=== PATIENT | male | born 1985 | race African-American/Black ===

== ENCOUNTER 2016-04-25 17:39 | Emergency (ER) | payer MEDICAID ==
[2016-04-25] MEDS ORDERED: IBUPROFEN 400 MG TABLET PO ONE (18:49)
[2016-04-25] MEDS ORDERED: oxyCOD/ACETAMIN 5 MG/325 MG TABLET PO ONE (18:49)
[2016-04-25] MEDS ORDERED: AMOXICILLIN 250 MG CAPSULE PO ONE (18:49)
== END 2016-04-25 19:12 | disposition home or self-care (01) ==
DX: K08.89 Other specified disorders of teeth and supporting structures (principal)
CPT/HCPCS: 99281; 99283; A9270

== ENCOUNTER 2016-05-04 10:31 | Outpatient (CLI) | payer MEDICAID | END 2016-05-04 10:32 | disposition home or self-care (01) | DX: M25.462 Effusion, left knee (principal); M25.562 Pain in left knee ==

== ENCOUNTER 2016-11-08 19:29 | Emergency (ER) | payer MEDICAID ==
[2016-11-08 19:41] VITALS: BP 140/87
[2016-11-08] MEDS ORDERED: KETOROLAC 60 MG/2 ML VIAL IM STA (20:26)
[2016-11-08] MEDS ORDERED: KETOROLAC 60 MG/2 ML VIAL ONE (20:37)
--- NOTE | 2016-11-08 20:57 | XRAY Preliminary Report ---
Exam: XR Elbow 3 View LT IMPRESSION: Normal elbow radiography. [facility] SITE ID: [id number]
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
--- NOTE | 2016-11-08 20:59 | XRAY Report ---
EXAM: LEFT ELBOW RADIOGRAPHY EXAM DATE: 11/08/2016 08:39 PM. CLINICAL HISTORY: Elbow pain. COMPARISON: None. TECHNIQUE: 3 views. FINDINGS: Bones: Normal. No fractures or bone lesions. Joints: Normal. No effusion. No subluxation. Soft Tissues: Normal. No soft tissue swelling. IMPRESSION: Normal elbow radiography. [facility] Referring Provider Line: [phone] SITE ID: [id number]
== END 2016-11-08 21:09 | disposition home or self-care (01) ==
LOC: ED 19:29
DX: M54.9 Dorsalgia, unspecified (principal); M25.522 Pain in left elbow; V49.9XXA Car occupant (driver) (passenger) injured in unspecified traffic accident, initial encounter; J45.909 Unspecified asthma, uncomplicated
CPT/HCPCS: 96372; 99283

== ENCOUNTER 2016-11-26 14:17 | Emergency (ER) | payer MEDICAID ==
[2016-11-26 14:29] VITALS: BP 150/102
== END 2016-11-26 15:15 | disposition left against medical advice (07) ==
LOC: ED 14:17
DX: Z53.21 Procedure and treatment not carried out due to patient leaving prior to being seen by health care provider (principal)

== ENCOUNTER 2016-11-27 03:02 | Emergency (ER) | payer MEDICAID ==
[2016-11-27 03:09] VITALS: BP 158/92
[2016-11-27] MEDS ORDERED: HYDROcod/ACET 5/325 Prepack 6 PO STA (03:24)
[2016-11-27] MEDS ORDERED: CLINDAMYCIN 150 MG CAPSULE PO STA (03:24)
--- NOTE | 2016-11-27 03:27 | ED Physician Documentation ---
PD HPI HEENT - Stated complaint Stated Complaint: TOOTHACHE - Chief complaint Chief Complaint: Heent - History obtained from History obtained from: Patient - History of Present Illness Timing - onset: How many days ago (4) Timing - details: Still present Location: Tooth Associated symptoms: No: Fever, Facial swelling Similar symptoms before: Diagnosis (Reports past history of abscessed teeth, many years ago.) - Additional information Additional information: The patient is a 31-year-old male who presents with toothache in his right lower molar, persisting for the last 4 days. The pain is getting so bad that he is having difficulty opening his mouth all the way. He denies fever, headache, or difficulty swallowing. He has a past history of abscessed teeth many years ago. Review of Systems Constitutional: denies: Fever Eyes: denies: Irritation Ears: denies: Ear pain Nose: denies: Congestion Throat: reports: Dental pain / toothache. denies: Sore throat Cardiac: denies: Chest pain / pressure, Palpitations Respiratory: denies: Dyspnea, Cough GI: denies: Abdominal Pain, Nausea, Vomiting Skin: denies: Rash Musculoskeletal: denies: Neck pain Neurologic: denies: Headache PD PAST MEDICAL HISTORY - Past Medical History Past Medical History: Yes Cardiovascular: Hypertension Respiratory: Asthma Endocrine/Autoimmune: None - Past Surgical History Past Surgical History: Yes Ortho: Other - Present Medications Home Medications: Ambulatory Orders Medication Instructions Recorded Confirmed HYDROcod/ACETAM 5/325 [[place] 5/325] 1 - 2 ea PO Q6H PRN #20 tablet 11/27/16 Penicillin V Potassium 500 mg PO QID #40 tablet 11/27/16 - Allergies Allergies/Adverse Reactions: Allergies Allergy/AdvReac Type Severity Reaction Status Date / Time oxyclean Pet tar heat exchanger cleaner AdvReac Rash Uncoded 11/27/16 03:09 - Social History Does the pt smoke?: No Smoking Status: Never smoker Does the pt drink ETOH?: Yes Does the pt have substance abuse?: No - Immunizations Immunizations are current?: Yes PD ED PE NORMAL - Vitals Vital signs reviewed: Yes (Initially hypertensive.) - General General: Alert and oriented X 3, Well developed/nourished - HEENT HEENT: Atraumatic, EOMI, Ears normal, Pharynx benign, Other (Dental caries are noted, involving particularly the rear lower molars bilaterally. There is soft tissue swelling around the right rear molar, with tenderness to palpation of the tooth and surrounding soft tissue. There is no peritonsillar swelling appreciated.) - Neck Neck: Other (Mildly enlarged right submandibular lymph nodes.) - Cardiac Cardiac: RRR, No murmur - Respiratory Respiratory: No respiratory distress, Clear bilaterally - Derm Derm: No rash - Neuro Neuro: Alert and oriented X 3, Normal speech Results - Vitals Vitals: Oxygen O2 Source Room air PD MEDICAL DECISION MAKING - ED course Complexity details: considered differential, d/w patient ED course: The patient's presentation is most consistent with dental abscess or right lower molar. There is no clinical evidence to suggest peritonsillar abscess. Treatment in the emergency department included administration of clindamycin 300 mg orally. A prepack of Vicodin was dispensed. He is being discharged with prescriptions for penicillin and for Vicodin. I discussed with him the importance of follow-up with a dentist, as well as potentially worrisome signs or symptoms that should prompt reevaluation in the emergency department. Departure - Departure Disposition: 01 Home, Self Care Clinical Impression: Dental abscess Condition: Stable Instructions: ED Abscess Dental Follow-Up: Elvia Winkler PA-C [Provider Admit Priv/Credential] - Prescriptions: HYDROcod/ACETAM 5/325 [[place] 5/325] 1 - 2 ea PO Q6H PRN #20 tablet PRN Reason: Pain Penicillin V Potassium 500 mg PO QID #40 tablet Comments: Take penicillin 4 times daily as prescribed. You can use Vicodin as prescribed if needed for pain. Follow-up with dentist as soon as possible. Return to the emergency department if you develop increasing pain, increased facial swelling or difficulty swallowing, or otherwise worsening symptoms. Discharge Date/Time: 11/27/16 03:31
[2016-11-27] MEDS ORDERED: HYDROcod/ACET 5/325 Prepack 6 PO ONE (03:30)
[2016-11-27] MEDS ORDERED: CLINDAMYCIN 150 MG CAPSULE PO ONE (03:30)
== END 2016-11-27 03:31 | disposition home or self-care (01) ==
LOC: ED 03:02
DX: K04.7 Periapical abscess without sinus (principal); K02.9 Dental caries, unspecified; I10 Essential (primary) hypertension
CPT/HCPCS: 99283; A9270

== ENCOUNTER 2016-12-09 13:30 | Emergency (ER) | payer MEDICAID ==
[2016-12-09 13:43] VITALS: BP 155/99
== END 2016-12-09 13:50 | disposition left against medical advice (07) ==
LOC: ED 13:30
DX: R06.02 Shortness of breath (principal); R09.81 Nasal congestion; Z53.21 Procedure and treatment not carried out due to patient leaving prior to being seen by health care provider

== ENCOUNTER 2016-12-10 00:37 | Emergency (ER) | payer MEDICAID ==
--- NOTE | 2016-12-10 02:10 | ED Physician Documentation ---
PD HPI DYSPNEA - Stated complaint Stated Complaint: DIFF BREATHING - Chief complaint Chief Complaint: Resp - History obtained from History obtained from: Patient - History of Present Illness Timing - onset: How many days ago (2) Timing - duration: Days Timing - details: Gradual onset Improved by: Rest Worsened by: Exertion Associated symptoms: No: Fever Similar symptoms before: Diagnosis (sinusitis) - Additional information Additional information: c/o dyspnea c/w asthma exacerbation, as well as sinus congestion, nausea, vomiting, [employer] cough. he says this is something he tends to get once or twice a year and previous medications have worked for him, specifically prednisone, phenergan with codeine, decongestant, afrin, and albuterol Review of Systems Constitutional: reports: Reviewed and negative Ears: reports: Reviewed and negative Nose: reports: Rhinorrhea / runny nose, Congestion, Sinus pressure / pain Throat: denies: Sore throat Respiratory: reports: Dyspnea, Cough, Wheezing GI: reports: Nausea, Vomiting. denies: Abdominal Pain PD PAST MEDICAL HISTORY - Past Medical History Cardiovascular: Hypertension Respiratory: Asthma Endocrine/Autoimmune: None - Past Surgical History Past Surgical History: Yes Ortho: Other - Present Medications Home Medications: Ambulatory Orders Medication Instructions Recorded Confirmed Albuterol Sulfate [Proventil Hfa 1 - 2 puffs INH Q4H PRN #1 inhaler 12/10/16 Inhaler] Guaifenesin/Pseudoephedrne HCl 1 each PO BID PRN #20 tab.er.12h 12/10/16 [Mucinex D ER 600-60 mg Tablet] Promethazine HCl/Codeine 5 - 10 ml PO Q4HR PRN #120 syrup 12/10/16 [Prometh-Codein 6.25-10 mg/5 ml] amLODIPine [Norvasc] 5 mg PO DAILY 12/10/16 12/10/16 predniSONE [Deltasone] 20 mg PO [id number] #21 tab 12/10/16 - Allergies Allergies/Adverse Reactions: Allergies Allergy/AdvReac Type Severity Reaction Status Date / Time oxyclean Pet wheat cleaner AdvReac Rash Uncoded 12/09/16 13:43 - Social History Does the pt smoke?: No Smoking Status: Never smoker Does the pt drink ETOH?: Yes Does the pt have substance abuse?: No - Immunizations Immunizations are current?: Yes PD ED PE NORMAL - Vitals Vital signs reviewed: Yes - General General: Alert and oriented X 3, No acute distress, Well developed/nourished - HEENT HEENT: PERRL, EOMI, Moist mucous membranes, Pharynx benign - Neck Neck: Supple, no meningeal sign - Respiratory Respiratory: No respiratory distress, Clear bilaterally Results - Vitals Vitals: Vital Signs - 24 hr 12/10/16 03:28 Heart Rate 78 Respiratory 18 Rate Blood Pressure 171/78 H O2 Saturation 100 Oxygen O2 Source Room air PD MEDICAL DECISION MAKING - ED course Complexity details: reviewed old records, re-evaluated patient, considered differential, d/w patient Departure - Departure Disposition: Home, Self Care Clinical Impression: Sinusitis, acute Condition: Good Instructions: ED Sinusitis No Abx Follow-Up: Elvia Winkler PA-C [Primary Care Provider] - Prescriptions: Promethazine HCl/Codeine [Prometh-Codein 6.25-10 mg/5 ml] 5 - 10 ml PO Q4HR PRN #120 syrup PRN Reason: Cough predniSONE [Deltasone] 20 mg PO [id number] #21 tab Guaifenesin/Pseudoephedrne HCl [Mucinex D ER 600-60 mg Tablet] 1 each PO BID PRN #20 tab.er.12h PRN Reason: Cold Symptons Albuterol Sulfate [Proventil Hfa Inhaler] 1 - 2 puffs INH Q4H PRN #1 inhaler PRN Reason: Shortness Of Air/Wheezing Discharge Date/Time: 12/10/16 03:30
[2016-12-10] MEDS ORDERED: OXYMETAZOLINE NASAL SPRAY NAS STA (02:17)
[2016-12-10] MEDS ORDERED: PROMETHAZINE 25 MG TABLET PO STA (02:17)
[2016-12-10] MEDS ORDERED: predniSONE 20 MG TABLET PO STA (02:17)
[2016-12-10] MEDS ORDERED: IPRATROPIUM/ALBUTEROL 3 ML NEB INH STA (02:18)
[2016-12-10] MEDS ORDERED: OXYMETAZOLINE NASAL SPRAY NAS ONE (02:26)
[2016-12-10] MEDS ORDERED: PROMETHAZINE 25 MG TABLET ONE (02:26)
[2016-12-10] MEDS ORDERED: IPRATROPIUM/ALBUTEROL 3 ML NEB INH ONE (02:26)
[2016-12-10] MEDS ORDERED: predniSONE 20 MG TABLET ONE (02:26)
[2016-12-10 03:31] VITALS: BP 171/78
== END 2016-12-10 03:30 | disposition home or self-care (01) ==
LOC: ED 00:37
DX: J01.90 Acute sinusitis, unspecified (principal)
CPT/HCPCS: 94640; 99283; A9270; J7512; J7620; Q0169

== ENCOUNTER 2017-01-19 21:28 | Emergency (ER) | payer MEDICAID ==
[2017-01-19 21:39] VITALS: BP 154/96
[2017-01-19] MEDS ORDERED: AMOX/CLAV 875 MG/125 MG TABLET PO STA (22:01)
[2017-01-19] MEDS ORDERED: oxyCODONE/ACET 5/325 Prepack 4 PO STA (22:01)
--- NOTE | 2017-01-19 22:13 | ED Physician Documentation ---
History of Present Illness - Stated complaint Stated Complaint: THROAT BUMP - Chief complaint Chief Complaint: Heent - History obtained from History obtained from: Patient - Additonal information Additional information: He recently had a dental infection, stop the antibiotics early. This was for a right mandibular molar cavity. Over the last couple of days had increasing swelling in the submandibular area without sublingual edema or trismus. It is painful. He denies any fevers. Review of Systems Constitutional: denies: Fever, Chills Nose: denies: Rhinorrhea / runny nose, Congestion GI: denies: Abdominal Pain, Nausea, Vomiting PD PAST MEDICAL HISTORY - Past Medical History Cardiovascular: Hypertension Respiratory: Asthma Endocrine/Autoimmune: None - Past Surgical History Past Surgical History: Yes Ortho: Other - Present Medications Home Medications: Ambulatory Orders Medication Instructions Recorded Confirmed Albuterol Sulfate [Proventil Hfa 1 - 2 puffs INH Q4H PRN #1 inhaler 12/10/16 Inhaler] amLODIPine [Norvasc] 5 mg PO DAILY 12/10/16 01/19/17 Amox/Clav 875/125 [Augmentin] 1 each PO Q12H #20 tablet 01/19/17 Oxycodone HCl/Acetaminophen 1 - 2 tab PO Q4H PRN #10 tablet 01/19/17 [Percocet 5-325 mg Tablet] - Allergies Allergies/Adverse Reactions: Allergies Allergy/AdvReac Type Severity Reaction Status Date / Time No Known Drug Intolerances Allergy Unknown Verified 01/19/17 21:39 oxyclean Pet rug cleaner helper AdvReac Rash Uncoded 12/09/16 13:43 - Social History Does the pt smoke?: No Smoking Status: Never smoker Does the pt drink ETOH?: Yes Does the pt have substance abuse?: No - Immunizations Immunizations are current?: Yes PD ED PE NORMAL - Vitals Vital signs reviewed: Yes - General General: Alert and oriented X 3, No acute distress - HEENT HEENT: PERRL, EOMI, Pharynx benign, Other (There is a indurated area in the submental area with some tenderness of the sublingual area but without associated sublingual edema. This seems most consistent with a blockage of the salivary duct with superinfection there. Bedside ultrasound demonstrates no significant fluid collection. He has no trismus.) - Derm Derm: No rash - Neuro Neuro: Alert and oriented X 3, Normal speech - Psych Psych: Normal mood, Normal affect Results - Vitals Vitals: Vital Signs - 24 hr 01/19/17 21:35 Temperature 36.9 C Heart Rate 87 Respiratory 18 Rate Blood Pressure 154/96 H O2 Saturation 98 Oxygen O2 Source Room air PD MEDICAL DECISION MAKING - ED course ED course: 31-year-old gentleman with probably sublingual gland obstruction and associated abscess without evidence of airway compromise, or Hai's angina. He is advised to use lemon heads and started on antibiotics. Departure - Departure Disposition: 01 Home, Self Care Clinical Impression: Salivary gland abscess Condition: Good Record reviewed to determine appropriate education?: Yes Instructions: ED Submandibular Gland Infec Prescriptions: Amox/Clav 875/125 [Augmentin] 1 each PO Q12H #20 tablet Oxycodone HCl/Acetaminophen [Percocet 5-325 mg Tablet] 1 - 2 tab PO Q4H PRN #10 tablet PRN Reason: Pain Comments: Come back if worse or if he develop a fever. It is reasonable to follow-up with an ear nose and throat physician, the closest is in [place], call tomorrow to schedule an appointment. Your blood pressure was elevated today on check into the emergency department. This does not mean that you have hypertension, it is a common phenomenon to come to the emergency department and have elevated blood pressure. I recommend that you see your primary care physician within the week to have it rechecked when you are feeling better. Do not drink or drive while taking narcotic pain medication. Note that many narcotic pain relievers also contain Tylenol/acetaminophen. Please ensure that your total dose of acetaminophen from all sources does not exceed 3 g (3000 mg) per day. You may get constipated while on this medication. Take a stool softener such as Colace twice a day while you are on it. Also add an hqoa-mrb-vykxjze laxative such as senna or MiraLAX on any day that you do not have a bowel movement. If you received a narcotic pain medication or sedative while in the emergency department, do not drive for the next 24 hours. Forms: Activity restrictions
[2017-01-19] MEDS ORDERED: AMOX/CLAV 875 MG/125 MG TABLET PO ONE (22:16)
[2017-01-19] MEDS ORDERED: oxyCODONE/ACET 5/325 Prepack 4 PO ONE (22:16)
== END 2017-01-19 22:20 | disposition home or self-care (01) ==
LOC: ED 21:28
DX: K11.3 Abscess of salivary gland (principal); I10 Essential (primary) hypertension
CPT/HCPCS: 99283; A9270

== ENCOUNTER 2017-03-18 19:33 | Emergency (ER) | payer MEDICAID ==
--- NOTE | 2017-03-18 19:39 | ED Physician Documentation ---
PD HPI DYSPNEA - History obtained from History obtained from: Patient - Stated complaint Stated Complaint: SOA/HX ASTHMA PD PAST MEDICAL HISTORY - Past Medical History Cardiovascular: Hypertension Respiratory: Asthma Endocrine/Autoimmune: None - Past Surgical History Past Surgical History: Yes Ortho: Other - Social History Does the pt smoke?: No Smoking Status: Never smoker Does the pt drink ETOH?: Yes Does the pt have substance abuse?: No - Immunizations Immunizations are current?: Yes - Present Medications Home Medications: Ambulatory Orders Medication Instructions Recorded Confirmed Albuterol Sulfate [Proventil Hfa 1 - 2 puffs INH Q4H PRN #1 inhaler 12/10/16 Inhaler] amLODIPine [Norvasc] 5 mg PO DAILY 12/10/16 03/18/17 Oxycodone HCl/Acetaminophen 1 - 2 tab PO Q4H PRN #10 tablet 01/19/17 03/18/17 [Percocet 5-325 mg Tablet] Albuterol Sulfate [Proventil Hfa 1 - 2 puffs INH Q4H PRN #1 inhaler 03/18/17 Inhaler] Guaifenesin/Pseudoephedrne HCl 1 each PO BID PRN #10 tab.er.12h 03/18/17 [Mucinex D ER 600-60 mg Tablet] Oxymetazoline HCl [Afrin] 1 spray NS BID PRN #15 ml 03/18/17 Promethazine HCl 12 mg PO Q6HR PRN #100 syrup 03/18/17 predniSONE [Deltasone] 20 mg PO [id number] #21 tab 03/18/17 - Allergies Allergies/Adverse Reactions: Allergies Allergy/AdvReac Type Severity Reaction Status Date / Time No Known Drug Intolerances Allergy Unknown Verified 03/18/17 19:42 oxyclean Pet spinneret cleaner AdvReac Rash Uncoded 03/18/17 19:42 - Vitals Vitals: Vital Signs - 24 hr 03/18/17 03/18/17 03/18/17 19:39 21:10 22:15 Temperature 36.9 C Heart Rate 85 67 67 Respiratory 20 20 22 Rate Blood Pressure 169/94 H 146/87 H O2 Saturation 100 100 Oxygen O2 Source Room air Departure - Departure Disposition: 01 Home, Self Care Clinical Impression: Bronchitis, Nausea Sinusitis Qualifiers: Sinusitis location: unspecified location Chronicity: acute Recurrence: not specified as recurrent Qualified Code(s): J01.90 - Acute sinusitis, unspecified Condition: Good Instructions: ED Upper Resp Infec No Abx Tx Follow-Up: Elvia Winkler PA-C [Primary Care Provider] - Prescriptions: Promethazine HCl 12 mg PO Q6HR PRN #100 syrup PRN Reason: Nausea / Vomiting Albuterol Sulfate [Proventil Hfa Inhaler] 1 - 2 puffs INH Q4H PRN #1 inhaler PRN Reason: Shortness Of Air/Wheezing Guaifenesin/Pseudoephedrne HCl [Mucinex D ER 600-60 mg Tablet] 1 each PO BID PRN #10 tab.er.12h PRN Reason: Nasal Congestion Oxymetazoline HCl [Afrin] 1 spray NS BID PRN #15 ml PRN Reason: Nasal Congestion predniSONE [Deltasone] 20 mg PO [id number] #21 tab Comments: Contact your primary care provider in the morning to arrange for next available appointment Discharge Date/Time: 03/18/17 22:16
[2017-03-18] MEDS ORDERED: predniSONE 20 MG TABLET PO STA (20:52)
[2017-03-18] MEDS ORDERED: IPRATROPIUM/ALBUTEROL 3 ML NEB INH STA (20:52)
[2017-03-18] MEDS ORDERED: PROMETHAZINE 25 MG TABLET PO STA (22:03)
[2017-03-18 22:16] VITALS: BP 146/87
--- NOTE | 2017-03-18 23:19 | ED Physician Documentation ---
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 Patient's child and S.O. are also registered as patients at this time for similar symptoms. Patient says he has similar symptoms "every change of seasons", and I note that I also saw patient in November for similar symptoms. He says he took a dose of phenergan with codeine (which I prescribed on his previous visit), but that was his last dose and he is specifically requesting this medication along with same prescriptions I wrote last time. Patient had right knee surgery last week and has f/u appointment tomorrow at [facility] Review of Systems Constitutional: denies: Fever Nose: reports: Congestion, Sinus pressure / pain Throat: reports: Sore throat Respiratory: reports: Dyspnea, Cough GI: reports: Nausea. denies: Abdominal Pain, Vomiting PD PAST MEDICAL HISTORY - Past Medical History Cardiovascular: Hypertension Respiratory: Asthma Endocrine/Autoimmune: None - Past Surgical History Past Surgical History: Yes Ortho: Other - Present Medications Home Medications: Ambulatory Orders Medication Instructions Recorded Confirmed Albuterol Sulfate [Proventil Hfa 1 - 2 puffs INH Q4H PRN #1 inhaler 12/10/16 Inhaler] amLODIPine [Norvasc] 5 mg PO DAILY 12/10/16 03/18/17 Oxycodone HCl/Acetaminophen 1 - 2 tab PO Q4H PRN #10 tablet 01/19/17 03/18/17 [Percocet 5-325 mg Tablet] Albuterol Sulfate [Proventil Hfa 1 - 2 puffs INH Q4H PRN #1 inhaler 03/18/17 Inhaler] Guaifenesin/Pseudoephedrne HCl 1 each PO BID PRN #10 tab.er.12h 03/18/17 [Mucinex D ER 600-60 mg Tablet] Oxymetazoline HCl [Afrin] 1 spray NS BID PRN #15 ml 03/18/17 Promethazine HCl 12 mg PO Q6HR PRN #100 syrup 03/18/17 predniSONE [Deltasone] 20 mg PO [id number] #21 tab 03/18/17 - Allergies Allergies/Adverse Reactions: Allergies Allergy/AdvReac Type Severity Reaction Status Date / Time No Known Drug Intolerances Allergy Unknown Verified 03/18/17 19:42 oxyclean Pet equipment 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 AdvReac Rash Uncoded 03/18/17 19:42 - Social History Does the pt smoke?: No Smoking Status: Never smoker Does the pt drink ETOH?: Yes Does the pt have substance abuse?: No - Immunizations Immunizations are current?: Yes PD ED PE NORMAL - Vitals Vital signs reviewed: Yes - General General: Alert and oriented X 3, No acute distress, Well developed/nourished - HEENT HEENT: Moist mucous membranes, Pharynx benign - Neck Neck: Supple, no meningeal sign - Cardiac Cardiac: RRR, No murmur - Respiratory Respiratory: No respiratory distress, Clear bilaterally - Abdomen Abdomen: Soft, Non tender Results - Vitals Vitals: Vital Signs - 24 hr 03/18/17 03/18/17 03/18/17 19:39 21:10 22:15 Temperature 36.9 C Heart Rate 85 67 67 Respiratory 20 20 22 Rate Blood Pressure 169/94 H 146/87 H O2 Saturation 100 100 Oxygen O2 Source Room air PD MEDICAL DECISION MAKING - ED course Complexity details: reviewed old records, re-evaluated patient, considered differential, d/w patient ED course: given PO dose of phenergan in ED, but phenergan with codeine is not available in ED. Patient says he still has two tablets of oxycodone left from recent rx ( for right knee; [facility]AP[facility] reflects 20 tablets filled 2 days ago), and I advised him that he could take one or two of these once he gets home, and then talk to his doctor tomorrow during the scheduled appointment he has regarding further narcotic medications Departure - Departure Disposition: 01 Home, Self Care Clinical Impression: Bronchitis, Nausea Sinusitis Qualifiers: Sinusitis location: unspecified location Chronicity: acute Recurrence: not specified as recurrent Qualified Code(s): J01.90 - Acute sinusitis, unspecified Condition: Good Instructions: ED Upper Resp Infec No Abx Tx Follow-Up: Peterson,Elvia K, PA-C [Primary Care Provider] - Prescriptions: Promethazine HCl 12 mg PO Q6HR PRN #100 syrup PRN Reason: Nausea / Vomiting Albuterol Sulfate [Proventil Hfa Inhaler] 1 - 2 puffs INH Q4H PRN #1 inhaler PRN Reason: Shortness Of Air/Wheezing Guaifenesin/Pseudoephedrne HCl [Mucinex D ER 600-60 mg Tablet] 1 each PO BID PRN #10 tab.er.12h PRN Reason: Nasal Congestion Oxymetazoline HCl [Afrin] 1 spray NS BID PRN #15 ml PRN Reason: Nasal Congestion predniSONE [Deltasone] 20 mg PO [id number] #21 tab Comments: Contact your primary care provider in the morning to arrange for next available appointment Discharge Date/Time: 03/18/17 22:16
== END 2017-03-18 22:16 | disposition home or self-care (01) ==
LOC: ED 19:33
DX: J40 Bronchitis, not specified as acute or chronic (principal); J01.90 Acute sinusitis, unspecified; R11.0 Nausea; I10 Essential (primary) hypertension
CPT/HCPCS: 94640; 99283; J7512; J7620; Q0169

== ENCOUNTER 2017-07-04 20:36 | Emergency (ER) | payer MEDICAID ==
[2017-07-04] MEDS ORDERED: predniSONE 20 MG TABLET PO STA (20:58)
[2017-07-04] MEDS ORDERED: IPRATROPIUM/ALBUTEROL 3 ML NEB INH STA (20:59)
--- NOTE | 2017-07-04 21:01 | ED Physician Documentation ---
PD HPI URI - Stated complaint Stated Complaint: COUGH/CHEST CONGESTION - Chief complaint Chief Complaint: Resp - History obtained from History obtained from: Patient - History of Present Illness Timing - onset: Other (2 days of cough, URI and fevers, increased asthma. Does not have a rescue inhaler now. Does use a lot of MJ. Does not smoke cigarettes. Takes his amlodipine only intermittently.) Review of Systems Constitutional: reports: Fever, Chills Nose: reports: Rhinorrhea / runny nose, Congestion Throat: denies: Sore throat Respiratory: reports: Dyspnea, Cough GI: denies: Abdominal Pain, Nausea, Vomiting PD PAST MEDICAL HISTORY - Past Medical History Cardiovascular: Hypertension Respiratory: Asthma Endocrine/Autoimmune: None - Past Surgical History Past Surgical History: Yes Ortho: Other - Present Medications Home Medications: Ambulatory Orders Medication Instructions Recorded Confirmed amLODIPine [Norvasc] 5 mg PO DAILY 12/10/16 03/18/17 Promethazine HCl 12 mg PO Q6HR PRN #100 syrup 03/18/17 Albuterol Sulfate [Proventil Hfa 1 - 2 puffs IH Q4H PRN #1 07/04/17 Inhaler] hfa.aer.ad guaiFENesin/CODEINE [Robitussin AC] 5 - 10 ml PO Q6H PRN #120 ml 07/04/17 predniSONE [Deltasone] 60 mg PO DAILY 5 Days tablet 07/04/17 - Allergies Allergies/Adverse Reactions: Allergies Allergy/AdvReac Type Severity Reaction Status Date / Time No Known Drug Intolerances Allergy Unknown Verified 07/04/17 20:51 oxyclean Pet 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 cleaner AdvReac Rash Uncoded 03/18/17 19:42 - Social History Does the pt smoke?: No Smoking Status: Never smoker Does the pt drink ETOH?: Yes Does the pt have substance abuse?: No Substance Use and Type: Marijuana - Immunizations Immunizations are current?: Yes PD ED PE NORMAL - Vitals Vital signs reviewed: Yes - General General: Alert and oriented X 3, No acute distress - HEENT HEENT: PERRL, EOMI, Pharynx benign - Neck Neck: Supple, no meningeal sign, No bony TTP - Cardiac Cardiac: RRR, No murmur - Respiratory Respiratory: No respiratory distress, Other (Diminished throughout with bibasilar crackles and tight wheezes) - Abdomen Abdomen: Soft, Non tender - Extremities Extremities: No deformity, No tenderness to palpate, No edema, No calf tenderness / cord - Neuro Neuro: Alert and oriented X 3, Normal speech - Psych Psych: Normal mood, Normal affect Results - Vitals Vitals: Vital Signs - 24 hr 07/04/17 20:40 Temperature 37.8 C H Heart Rate 117 H Respiratory 18 Rate Blood Pressure 208/109 H O2 Saturation 99 Oxygen O2 Source Room air - Labs Labs: Laboratory Tests 07/04/17 21:10 Influenza A (Rapid) POSITIVE H Influenza B (Rapid) POSITIVE H Influenza Types A,B Ag SEE COMMENT - Rads (name of study) 2v chest Radiology: EMP read contemporaneously (PHPBT, no PNA) PD MEDICAL DECISION MAKING - ED course ED course: This young man with a history of asthma presents with low-grade fever and cough. He is found to be positive for both flu a and flu B which may be a lab error but at the same time both are circulating right now and probably merits treatment with Tamiflu. He was given close follow-up precautions and was feeling and sounding much better after a DuoNeb here. However after discussion he has done some research on Tamiflu on line and does not want to take it. I discussed with him that he clearly fits the guidelines for taking Tamiflu but he feels medicine such as this and immunizations for his child are harmful. He just wants Phenergan and codeine cough syrup. Departure - Departure Disposition: 01 Home, Self Care Clinical Impression: Influenza Asthma Qualifiers: Asthma severity: moderate Asthma persistence: persistent Asthma complication type: with acute exacerbation Qualified Code(s): J45.41 - Moderate persistent asthma with (acute) exacerbation Condition: Good Record reviewed to determine appropriate education?: Yes Instructions: Asthma Dc, ED Flu Prescriptions: Albuterol Sulfate [Proventil Hfa Inhaler] 1 - 2 puffs IH Q4H PRN #1 hfa.aer.ad PRN Reason: Cough guaiFENesin/CODEINE [Robitussin AC] 5 - 10 ml PO Q6H PRN #120 ml PRN Reason: Cough predniSONE [Deltasone] 60 mg PO DAILY 5 Days tablet Comments: You need to take your blood pressure medicine. Your blood pressure is very high tonight. Call your doctor to arrange a follow-up appointment, make the next available appointment. In the interim, return anytime if worse or if new symptoms develop.
--- NOTE | 2017-07-04 21:17 | XRAY Preliminary Report ---
Exam: XR CHEST 2 VIEW X-RAY IMPRESSION: Bilateral bronchial wall thickening which can be seen in bronchitis or reactive airways d isease. BAUER SITE ID: [id number]
--- NOTE | 2017-07-04 21:17 | XRAY Report ---
EXAM: CHEST RADIOGRAPHY EXAM DATE: 07/04/2017 09:01 PM. CLINICAL HISTORY: Shortness of breath COMPARISON: Chest x-ray 12/10/2011. TECHNIQUE: 2 views. FINDINGS: Lungs/Pleura: No pleural effusion or pneumothorax. No focal consolidation. Bilateral bronchial wall t hickening. Mediastinum: Heart and mediastinal contours are unremarkable. Other: None. IMPRESSION: Bilateral bronchial wall thickening which can be seen in bronchitis or reactive airways d isease. PIRESA Referring Provider Line: [phone] SITE ID: [id number]
[2017-07-04] MEDS ORDERED: OSELTAMIVIR 75 MG CAPSULE PO STA (21:44)
[2017-07-04 21:51] VITALS: BP 167/125
== END 2017-07-04 22:00 | disposition home or self-care (01) ==
LOC: ED 20:36
DX: J11.1 Influenza due to unidentified influenza virus with other respiratory manifestations (principal); J45.41 Moderate persistent asthma with (acute) exacerbation; I10 Essential (primary) hypertension
CPT/HCPCS: 71046; 87275; 87276; 94640; 99283; J7512

== ENCOUNTER 2018-06-18 00:20 | Emergency (ER) | payer MEDICAID ==
--- NOTE | 2018-06-18 03:08 | ED Physician Documentation ---
History of Present Illness - Stated complaint Stated Complaint: L FOOT PAIN - Chief complaint Chief Complaint: General - History obtained from History obtained from: Patient - History of Present Illness Timing: How many weeks ago (1-2) - Additonal information Additional information: patient complains of pain in fourth webspace of his left foot, associated with a scaly rash. symptoms began approximately 1 to 2 weeks ago. He says he has had this in the past and he responded to topical medication. Review of Systems Skin: reports: Rash Musculoskeletal: reports: Extremity pain PD PAST MEDICAL HISTORY - Past Medical History Past Medical History: Yes Cardiovascular: Hypertension Respiratory: Asthma Neuro: None Endocrine/Autoimmune: None GI: None : None HEENT: None Psych: None Musculoskeletal: None Derm: None - Past Surgical History Past Surgical History: Yes Ortho: Other - Present Medications Home Medications: Ambulatory Orders Medication Instructions Recorded Confirmed amLODIPine [Norvasc] 5 mg PO DAILY 12/10/16 03/18/17 Promethazine HCl 12 mg PO Q6HR PRN #100 syrup 03/18/17 Albuterol Sulfate [Proventil Hfa 1 - 2 puffs IH Q4H PRN #1 07/04/17 Inhaler] hfa.aer.ad guaiFENesin/CODEINE [Robitussin AC] 5 - 10 ml PO Q6H PRN #120 ml 07/04/17 predniSONE [Deltasone] 60 mg PO DAILY 5 Days tablet 07/04/17 Clotrimazole [Clotrimazole AF] 1 film TP BID #1 cream..g. 06/18/18 - Allergies Allergies/Adverse Reactions: Allergies Allergy/AdvReac Type Severity Reaction Status Date / Time No Known Drug Intolerances Allergy Unknown Verified 06/18/18 00:34 oxyclean Pet filter screen cleaner AdvReac Rash Uncoded 03/18/17 19:42 - Social History Does the pt smoke?: No Smoking Status: Never smoker Does the pt drink ETOH?: Yes Does the pt have substance abuse?: No - Immunizations Immunizations are current?: Yes - POLST Patient has POLST: No PD ED PE NORMAL - Vitals Vital signs reviewed: Yes - General General: Alert and oriented X 3, No acute distress, Well developed/nourished PD ED PE EXPANDED - Extremities Extremities: Other (scaly, moist exanthem left foot 4th webspace without erythema or swelling) Results - Vitals Vitals: Vital Signs - 24 hr 06/18/18 06/18/18 00:27 03:38 Temperature 36.4 C L Heart Rate 78 71 Respiratory 17 15 Rate Blood Pressure 162/97 H 145/89 H O2 Saturation 99 99 Oxygen O2 Source Room air PD MEDICAL DECISION MAKING - ED course Complexity details: considered differential, d/w patient Departure - Departure Disposition: 01 Home, Self Care Clinical Impression: Tinea pedis Condition: Good Instructions: ED Fungal Infec Athlete Foot Follow-Up: Elvia Winkler PA-C [Primary Care Provider] - Prescriptions: Clotrimazole [Clotrimazole AF] 1 film TP BID #1 cream..g. Discharge Date/Time: 06/18/18 03:39
[2018-06-18 03:39] VITALS: BP 145/89
== END 2018-06-18 03:39 | disposition home or self-care (01) ==
LOC: ED 00:20
DX: B35.3 Tinea pedis (principal); I10 Essential (primary) hypertension
CPT/HCPCS: 99283

== ENCOUNTER 2019-01-10 12:56 | Emergency (ER) | payer MEDICAID ==
--- NOTE | 2019-01-10 14:11 | XRAY Report ---
Reason: 5th finger inj Procedure Date: 01/10/2019 Accession Number: [id number] / [id number] Procedure: XR - Finger(s) LT CPT Code: FULL RESULT: EXAM: LEFT FIFTH DIGIT RADIOGRAPHY EXAM DATE: 01/10/2019 01:46 PM. CLINICAL HISTORY: 5th finger injury. COMPARISON: None. TECHNIQUE: 3 views. FINDINGS: Fracture through the dorsal aspect of the fifth distal phalanx at the base with minimal displacement, consistent with an avulsion fracture. Surrounding soft tissue swelling. No additional fracture. No dislocation. IMPRESSION: Minimally displaced fracture of the fifth distal phalanx. RADIA
[2019-01-10 14:38] VITALS: BP 167/98
[2019-01-10] MEDS ORDERED: HYDROcod/ACETAM 5/325 MG TABLET PO STA (14:42)
--- NOTE | 2019-01-10 14:47 | ED Physician Documentation ---
PD HPI LOWER EXT INJURY - Stated complaint Stated Complaint: LEFT PINKY INJ - Chief complaint Chief Complaint: Trauma Ext - History obtained from History obtained from: Patient - History of Present Illness PD HPI LOW EXT INJURY LOCATION: Left (Jammed his left pinky finger playing basketball last night with persistent pain there.) Review of Systems Constitutional: reports: Reviewed and negative Throat: reports: Reviewed and negative Cardiac: reports: Reviewed and negative PD PAST MEDICAL HISTORY - Past Medical History Cardiovascular: Hypertension Respiratory: Asthma Neuro: None Endocrine/Autoimmune: None GI: None : None HEENT: None Psych: None Musculoskeletal: None Derm: None - Past Surgical History Past Surgical History: Yes Ortho: Other - Present Medications Home Medications: Ambulatory Orders Medication Instructions Recorded Confirmed amLODIPine [Norvasc] 5 mg PO DAILY 12/10/16 03/18/17 Promethazine HCl 12 mg PO Q6HR PRN #100 syrup 03/18/17 Albuterol Sulfate [Proventil Hfa 1 - 2 puffs IH Q4H PRN #1 07/04/17 Inhaler] hfa.aer.ad guaiFENesin/CODEINE [Robitussin AC] 5 - 10 ml PO Q6H PRN #120 ml 07/04/17 predniSONE [Deltasone] 60 mg PO DAILY 5 Days tablet 07/04/17 Clotrimazole [Clotrimazole AF] 1 film TP BID #1 cream..g. 06/18/18 Hydrocodone/Acetaminophen 1 - 2 each PO Q6H PRN #10 tablet 01/10/19 [Hydrocodon-Acetaminophen 5-325] - Allergies Allergies/Adverse Reactions: Allergies Allergy/AdvReac Type Severity Reaction Status Date / Time No Known Drug Intolerances Allergy Unknown Verified 01/10/19 13:16 oxyclean Pet coil cleaner AdvReac Rash Uncoded 01/10/19 13:16 - Social History Does the pt smoke?: No Smoking Status: Never smoker Does the pt drink ETOH?: Yes Does the pt have substance abuse?: No - Immunizations Immunizations are current?: Yes - POLST Patient has POLST: No PD ED PE NORMAL - Vitals Vital signs reviewed: Yes - General General: Alert and oriented X 3, No acute distress - Extremities Extremities: Other (Tender at the PIP of the left pinky finger, unable to completely straighten it but gets pretty close. Normal cap refill and sensation of the tip.) - Neuro Neuro: Alert and oriented X 3, Normal speech Results - Vitals Vitals: Vital Signs - 24 hr 01/10/19 13:16 Temperature 36.6 C Heart Rate 66 Respiratory 16 Rate Blood Pressure 167/98 H O2 Saturation 100 Oxygen O2 Source Room air - Rads (name of study) L pinky finger Radiology: Prelim report reviewed, EMP read contemporaneously (Minimally displaced fracture of the fifth distal phalanx dorsally) Procedures - Splint (location) L 5th finger Splint applied by: Physician Type of splint: Metal foam finger splint Other: Patient tolerated well, No complications, Neurovascular intact Departure - Departure Disposition: 01 Home, Self Care Clinical Impression: Finger fracture, left Qualifiers: Encounter type: initial encounter Finger: little finger Fracture type: closed Phalanx: distal Fracture alignment: displaced Qualified Code(s): S62.637A - Displaced fracture of distal phalanx of left little finger, initial encounter for closed fracture Condition: Good Record reviewed to determine appropriate education?: Yes Instructions: ED Fx Finger Closed Follow-Up: [facility] [Provider Group] - Within 1 week Prescriptions: Hydrocodone/Acetaminophen [Hydrocodon-Acetaminophen 5-325] 1 - 2 each PO Q6H PRN #10 tablet PRN Reason: pain Comments: Call the orthopedic office today, make an appointment for within a week. Keep the splint on and dry at all times until then. Do not drink or drive while taking narcotic pain medication. Note that many narcotic pain relievers also contain Tylenol/acetaminophen. Please ensure that your total dose of acetaminophen from all sources does not exceed 3 g (3000 mg) per day. You may get constipated while on this medication. Take a stool softener such as Colace twice a day while you are on it. Also add an [id number] laxative such as senna or MiraLAX on any day that you do not have a bowel movement. If you received a narcotic pain medication or sedative while in the emergency department, do not drive for the next 24 hours. Your blood pressure was elevated today on check into the emergency department. This does not mean that you have hypertension, it is a common phenomenon to come to the emergency department and have elevated blood pressure. I recommend that you see your primary care physician within the week to have it rechecked when you are feeling better.
== END 2019-01-10 15:04 | disposition home or self-care (01) ==
LOC: ED 12:56
DX: S62.637A Displaced fracture of distal phalanx of left little finger, initial encounter for closed fracture (principal); W51.XXXA Accidental striking against or bumped into by another person, initial encounter; Y93.67 Activity, basketball; Y92.310 Basketball court as the place of occurrence of the external cause; I10 Essential (primary) hypertension
CPT/HCPCS: 73140; 99283; A9270

== ENCOUNTER 2019-03-10 11:46 | Emergency (ER) | payer MEDICAID ==
[2019-03-10 11:58] VITALS: BP 148/84
--- NOTE | 2019-03-10 12:42 | ED Physician Documentation ---
PD HPI HEENT - Stated complaint Stated Complaint: FLU LIKE SX - Chief complaint Chief Complaint: Resp - History obtained from History obtained from: Patient - History of Present Illness Timing - onset: Other (Sick for 3 days with cough, shortness of breath, wheezing. Also dental pain from his molars, he never had his wisdom teeth out.) Review of Systems Constitutional: reports: Chills, Fatigue. denies: Fever Nose: reports: Rhinorrhea / runny nose Throat: reports: Sore throat GI: denies: Nausea, Vomiting, Diarrhea PD PAST MEDICAL HISTORY - Past Medical History Cardiovascular: Hypertension Respiratory: Asthma Neuro: None Endocrine/Autoimmune: None GI: None : None HEENT: None Psych: None Musculoskeletal: None Derm: None - Past Surgical History Past Surgical History: Yes Ortho: Other - Present Medications Home Medications: Ambulatory Orders Medication Instructions Recorded Confirmed amLODIPine [Norvasc] 5 mg PO DAILY 12/10/16 03/18/17 Promethazine HCl 12 mg PO Q6HR PRN #100 syrup 03/18/17 Albuterol Sulfate [Proventil Hfa 1 - 2 puffs IH Q4H PRN #1 07/04/17 Inhaler] hfa.aer.ad guaiFENesin/CODEINE [Robitussin AC] 5 - 10 ml PO Q6H PRN #120 ml 07/04/17 predniSONE [Deltasone] 60 mg PO DAILY 5 Days tablet 07/04/17 Clotrimazole [Clotrimazole AF] 1 film TP BID #1 cream..g. 06/18/18 Hydrocodone/Acetaminophen 1 - 2 each PO Q6H PRN #10 tablet 01/10/19 [Hydrocodon-Acetaminophen 5-325] Acetaminophen [Tylenol] 650 mg PO Q6H PRN #30 tablet 03/10/19 Albuterol Sulfate [Proair Hfa 1 - 2 puffs INH Q4H PRN #1 inhaler 03/10/19 Inhaler] Amox/Clav 875/125 [Augmentin] 1 each PO Q12H #20 tablet 03/10/19 Ibuprofen [Motrin] 800 mg PO Q8H PRN #30 tablet 03/10/19 guaiFENesin/CODEINE [Robitussin AC] 5 - 10 ml PO Q6H PRN #120 ml 03/10/19 - Allergies Allergies/Adverse Reactions: Allergies Allergy/AdvReac Type Severity Reaction Status Date / Time No Known Drug Intolerances Allergy Unknown Verified 03/10/19 11:55 oxyclean Pet ware cleaner AdvReac Rash Uncoded 01/10/19 13:16 - Social History Does the pt smoke?: No Smoking Status: Never smoker Does the pt drink ETOH?: Yes Does the pt have substance abuse?: No - Immunizations Immunizations are current?: Yes - POLST Patient has POLST: No PD ED PE NORMAL - Vitals Vital signs reviewed: Yes - General General: Alert and oriented X 3, No acute distress - HEENT HEENT: Pharynx benign - Neck Neck: Supple, no meningeal sign, No bony TTP, Other (Impacted wisdom teeth which are tender; Mild pericoronitis) - Cardiac Cardiac: RRR, No murmur - Respiratory Respiratory: No respiratory distress, Other (Mild expiratory wheezing, no distress) - Abdomen Abdomen: Non tender - Derm Derm: No rash - Neuro Neuro: Alert and oriented X 3, Normal speech Results - Vitals Vitals: Vital Signs - 24 hr 03/10/19 11:55 Temperature 37.1 C Heart Rate 99 Respiratory 15 Rate Blood Pressure 148/84 H O2 Saturation 100 Oxygen O2 Source Room air Departure - Departure Disposition: 01 Home, Self Care Clinical Impression: Pain due to dental caries Asthma Qualifiers: Asthma severity: mild Asthma persistence: intermittent Asthma complication type: with acute exacerbation Qualified Code(s): J45.21 - Mild intermittent asthma with (acute) exacerbation Condition: Good Record reviewed to determine appropriate education?: Yes Instructions: Asthma Dc Prescriptions: Acetaminophen [Tylenol] 650 mg PO Q6H PRN #30 tablet PRN Reason: PRN PAIN &/OR FEVER Albuterol Sulfate [Proair Hfa Inhaler] 1 - 2 puffs INH Q4H PRN #1 inhaler PRN Reason: Shortness Of Air/Wheezing Amox/Clav 875/125 [Augmentin] 1 each PO Q12H #20 tablet guaiFENesin/CODEINE [Robitussin AC] 5 - 10 ml PO Q6H PRN #120 ml PRN Reason: Cough Ibuprofen [Motrin] 800 mg PO Q8H PRN #30 tablet PRN Reason: PAIN &/OR FEVER Comments: Call your doctor to arrange a follow-up appointment, make the next available appointment. In the interim, return anytime if worse or if new symptoms develop. It is very important that you follow-up with a dentist. When it comes to dental problems like yours, the emergency department can only offer a short-term solution to your long-term problem. A couple of low cost options for dental care include: [facility] in [place], calls [phone] for an appointment Or [facility] in [place], call [phone] for an appointment. Your blood pressure was elevated today on check into the emergency department. This does not mean that you have hypertension, it is a common phenomenon to come to the emergency department and have elevated blood pressure. I recommend that you see your primary care physician within the week to have it rechecked when you are feeling better.
== END 2019-03-10 12:48 | disposition home or self-care (01) ==
LOC: ED 11:46
DX: J45.21 Mild intermittent asthma with (acute) exacerbation (principal); K01.1 Impacted teeth; K02.9 Dental caries, unspecified; I10 Essential (primary) hypertension
CPT/HCPCS: 87275; 87276; 99283; 99284

== ENCOUNTER 2019-03-21 03:14 | Emergency (ER) | payer MEDICAID ==
[2019-03-21 03:23] VITALS: BP 157/97
[2019-03-21] MEDS ORDERED: CHERRY SYRUP 10 ML UDC PO ONE (04:00)
[2019-03-21] MEDS ORDERED: AMOX/CLAV 875 MG/125 MG TABLET PO STA (04:00)
[2019-03-21] MEDS ORDERED: KETOROLAC 60 MG/2 ML VIAL IM STA (04:00)
[2019-03-21] MEDS ORDERED: DEXAMETHASONE 10 MG/ML VIAL PO STA (04:00)
[2019-03-21] MEDS ORDERED: HYDROcod/ACET 5/325 Prepack 4 PO STA (04:01)
--- NOTE | 2019-03-21 04:02 | ED Physician Documentation ---
PD HPI HEENT - Stated complaint Stated Complaint: TOOTH/EAR PX - Chief complaint Chief Complaint: Heent - History obtained from History obtained from: Patient - History of Present Illness Timing - onset: How many days ago (3) Timing - duration: Days (3) Timing - details: Gradual onset, Still present Location: Left ear, Tooth Improves: Medication Worsens: Swalllowing, Position, Temperatures Associated symptoms: Congestion, Rhinorrhea, Trismus, Headache, Cough Similar symptoms before: Diagnosis (bad teeth and OM) Recently seen: Emergency Dept - Additional information Additional information: 33-year-old male who is never had his wisdom teeth out has had some problems with pain in his teeth and now he has a lot of pain in the last lower molar and he is barely able to open his jaw well. He was seen in the emergency department [address] Haq and prescribed Augmentin and at that point the patient did not fill his prescription. He has come back to the emergency department this morning with the chief complaint of tooth pain and ear pain. He has had a cough and congestion. He states that his cough and congestion is better than when he was seen 11 days ago but is persistent. His ear pain is worse. Review of Systems Constitutional: denies: Fever Eyes: denies: Decreased vision Ears: reports: Ear pain Nose: reports: Congestion Throat: reports: Dental pain / toothache. denies: Sore throat Cardiac: denies: Chest pain / pressure Respiratory: reports: Cough. denies: Dyspnea GI: reports: Nausea, Vomiting PD PAST MEDICAL HISTORY - Past Medical History Cardiovascular: Hypertension Respiratory: Asthma Neuro: None Endocrine/Autoimmune: None GI: None : None HEENT: None Psych: None Musculoskeletal: None Derm: None - Past Surgical History Past Surgical History: Yes Ortho: Other - Present Medications Home Medications: Ambulatory Orders Medication Instructions Recorded Confirmed amLODIPine [Norvasc] 5 mg PO DAILY 12/10/16 03/18/17 Promethazine HCl 12 mg PO Q6HR PRN #100 syrup 03/18/17 Albuterol Sulfate [Proventil Hfa 1 - 2 puffs IH Q4H PRN #1 07/04/17 Inhaler] hfa.aer.ad guaiFENesin/CODEINE [Robitussin AC] 5 - 10 ml PO Q6H PRN #120 ml 07/04/17 predniSONE [Deltasone] 60 mg PO DAILY 5 Days tablet 07/04/17 Clotrimazole [Clotrimazole AF] 1 film TP BID #1 cream..g. 06/18/18 Hydrocodone/Acetaminophen 1 - 2 each PO Q6H PRN #10 tablet 01/10/19 [Hydrocodon-Acetaminophen 5-325] Acetaminophen [Tylenol] 650 mg PO Q6H PRN #30 tablet 03/10/19 Albuterol Sulfate [Proair Hfa 1 - 2 puffs INH Q4H PRN #1 inhaler 03/10/19 Inhaler] Amox/Clav 875/125 [Augmentin] 1 each PO Q12H #20 tablet 03/10/19 Ibuprofen [Motrin] 800 mg PO Q8H PRN #30 tablet 03/10/19 guaiFENesin/CODEINE [Robitussin AC] 5 - 10 ml PO Q6H PRN #120 ml 03/10/19 Amox/Clav 875/125 [Augmentin] 1 each PO Q12H #20 tablet 03/21/19 Hydrocodone/Acetaminophen 1 - 2 each PO Q6H PRN #14 tablet 03/21/19 [Hydrocodon-Acetaminophen 5-325] - Allergies Allergies/Adverse Reactions: Allergies Allergy/AdvReac Type Severity Reaction Status Date / Time No Known Drug Intolerances Allergy Unknown Verified 03/10/19 11:55 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 AdvReac Rash Uncoded 01/10/19 13:16 - Social History Does the pt smoke?: No Smoking Status: Never smoker Does the pt drink ETOH?: Yes Does the pt have substance abuse?: No - Immunizations Immunizations are current?: Yes - POLST Patient has POLST: No PD ED PE NORMAL - Vitals Vital signs reviewed: Yes (Hypertensive) - General General: Alert and oriented X 3, Well developed/nourished, Other (33-year-old male appears to be in pain with overhauler helper tone and flattened affect) - HEENT HEENT: Atraumatic, PERRL, EOMI, Other (Both TMs are erythematous with distortion of the landmarks the right is worse than the left. Examination of the oropharynx shows carious teeth and presence of partially erupted posterior molar that is broken off at the base.) - Neck Neck: Supple, no meningeal sign, No bony TTP - Cardiac Cardiac: RRR, No murmur - Respiratory Respiratory: No respiratory distress, Clear bilaterally - Abdomen Abdomen: Soft, Non tender - Derm Derm: Normal color, Warm and dry, No rash - Extremities Extremities: No deformity, No edema - Neuro Neuro: Alert and oriented X 3, vp business development 2-12 intact, No motor deficit, No sensory deficit, Normal speech Eye Opening: Spontaneous Motor: Obeys Commands Verbal: Oriented GCS Score: 15 - Psych Psych: Normal mood, Normal affect Results - Vitals Vitals: Vital Signs - 24 hr 03/21/19 03:20 Temperature 36.9 C Heart Rate 78 Respiratory 18 Rate Blood Pressure 157/97 H O2 Saturation 100 Oxygen O2 Source Room air PD MEDICAL DECISION MAKING - ED course Complexity details: reviewed old records, considered differential, d/w patient ED course: 33-year-old male who was unable to fill a prescription for Augmentin 11 days ago states that today he will be able to fill his prescription. He does have otitis today he also has a dental abscess and trismus. He is administered dexamethasone 10 mg orally and Toradol 60 [address] We will place him back on a course of Augmentin. Departure - Departure Disposition: Home, Self Care Clinical Impression: Dental abscess Otitis media Qualifiers: Otitis media type: suppurative Chronicity: acute Laterality: bilateral Recurrence: non-recurrent Spontaneous tympanic membrane rupture: without spontaneous rupture Qualified Code(s): H66.003 - Acute suppurative otitis media without spontaneous rupture of ear drum, bilateral Condition: Stable Instructions: ED Abscess Dental, ED Otitis Media Acute Adult Follow-Up: Elvia Winkler PA-C [Primary Care Provider] - Prescriptions: Amox/Clav 875/125 [Augmentin] 1 each PO Q12H #20 tablet Hydrocodone/Acetaminophen [Hydrocodon-Acetaminophen 5-325] 1 - 2 each PO Q6H PRN #14 tablet PRN Reason: pain
== END 2019-03-21 04:23 | disposition home or self-care (01) ==
LOC: ED 03:14
DX: K04.7 Periapical abscess without sinus (principal); H66.003 Acute suppurative otitis media without spontaneous rupture of ear drum, bilateral; K02.9 Dental caries, unspecified; R25.2 Cramp and spasm; I10 Essential (primary) hypertension
CPT/HCPCS: 96372; 99283; 99284; A9270

== ENCOUNTER 2019-03-22 21:15 | Emergency (ER) | payer MEDICAID ==
[2019-03-22 21:22] VITALS: BP 151/78
[2019-03-22] MEDS ORDERED: LIDOCAINE 1% 2 ML VIAL MC ONE (21:31)
[2019-03-22] MEDS ORDERED: cefTRIAXone 1 GM VIAL IM STA (21:31)
[2019-03-22] MEDS ORDERED: CHERRY SYRUP 10 ML UDC PO ONE (21:31)
[2019-03-22] MEDS ORDERED: DEXAMETHASONE 10 MG/ML VIAL PO STA (21:31)
[2019-03-22] MEDS ORDERED: KETOROLAC 60 MG/2 ML VIAL IM STA (21:32)
--- NOTE | 2019-03-22 21:42 | ED Physician Documentation ---
History of Present Illness - Stated complaint Stated Complaint: JAW PX - Chief complaint Chief Complaint: General - History obtained from History obtained from: Patient - History of Present Illness Timing: Other (33-year-old gentleman with a dental infection, he started Augmentin yesterday. Was doing better after Toradol and Decadron but has more trismus today. No fevers or chills. No facial swelling.) Review of Systems Constitutional: denies: Fever, Chills Ears: denies: Drainage/discharge Nose: denies: Rhinorrhea / runny nose, Congestion PD PAST MEDICAL HISTORY - Past Medical History Cardiovascular: Hypertension Respiratory: Asthma Neuro: None Endocrine/Autoimmune: None GI: None : None HEENT: None Psych: None Musculoskeletal: None Derm: None - Past Surgical History Past Surgical History: Yes Ortho: Other - Present Medications Home Medications: Ambulatory Orders Medication Instructions Recorded Confirmed amLODIPine [Norvasc] 5 mg PO DAILY 12/10/16 03/18/17 Promethazine HCl 12 mg PO Q6HR PRN #100 syrup 03/18/17 Albuterol Sulfate [Proventil Hfa 1 - 2 puffs IH Q4H PRN #1 07/04/17 Inhaler] hfa.aer.ad guaiFENesin/CODEINE [Robitussin AC] 5 - 10 ml PO Q6H PRN #120 ml 07/04/17 predniSONE [Deltasone] 60 mg PO DAILY 5 Days tablet 07/04/17 Clotrimazole [Clotrimazole AF] 1 film TP BID #1 cream..g. 06/18/18 Hydrocodone/Acetaminophen 1 - 2 each PO Q6H PRN #10 tablet 01/10/19 [Hydrocodon-Acetaminophen 5-325] Acetaminophen [Tylenol] 650 mg PO Q6H PRN #30 tablet 03/10/19 Albuterol Sulfate [Proair Hfa 1 - 2 puffs INH Q4H PRN #1 inhaler 03/10/19 Inhaler] Amox/Clav 875/125 [Augmentin] 1 each PO Q12H #20 tablet 03/10/19 Ibuprofen [Motrin] 800 mg PO Q8H PRN #30 tablet 03/10/19 guaiFENesin/CODEINE [Robitussin AC] 5 - 10 ml PO Q6H PRN #120 ml 03/10/19 Amox/Clav 875/125 [Augmentin] 1 each PO Q12H #20 tablet 03/21/19 Hydrocodone/Acetaminophen 1 - 2 each PO Q6H PRN #14 tablet 03/21/19 [Hydrocodon-Acetaminophen 5-325] - Allergies Allergies/Adverse Reactions: Allergies Allergy/AdvReac Type Severity Reaction Status Date / Time No Known Drug Intolerances Allergy Unknown Verified 03/22/19 21:22 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 He has some trismus but no sublingual edema or glossal elevation.) - Neck Neck: Supple, no meningeal sign, No bony TTP - Neuro Neuro: Alert and oriented X 3, Normal speech Results - Vitals Vitals: Vital Signs - 24 hr 03/22/19 21:18 Temperature 36.6 C Heart Rate 67 Respiratory 18 Rate Blood Pressure 151/78 H O2 Saturation 100 Oxygen O2 Source Room air Departure - Departure Disposition: 01 Home, Self Care Clinical Impression: Dental abscess Condition: Good Record reviewed to determine appropriate education?: Yes Instructions: ED Dental Abscess Facial Cellulitis Comments: It is very important that you follow-up with a dentist. When it comes to dental problems like yours, the emergency department can only offer a short-term solution to your long-term problem. A couple of low cost options for dental care include: [facility] in [place], calls [phone] for an appointment Or [facility] in [place], call [phone] for an appointment. Continue the antibiotics and pain pills were prescribed yesterday.
== END 2019-03-22 22:05 | disposition home or self-care (01) ==
LOC: ED 21:15
DX: K04.7 Periapical abscess without sinus (principal); K02.9 Dental caries, unspecified; I10 Essential (primary) hypertension
CPT/HCPCS: 96372; 99283; A9270

== ENCOUNTER 2019-11-21 21:42 | Emergency (ER) | payer MEDICAID ==
[2019-11-21 21:55] VITALS: BP 166/108
--- NOTE | 2019-11-21 22:01 | ED Physician Documentation ---
PD HPI UPPER EXT INJURY - Stated complaint Stated Complaint: RT ARM PX/INJ - Chief complaint Chief Complaint: Trauma Ext - History obtained from History obtained from: Patient - History of Present Illness Location: Right, Wrist Type of injury: Fall Timing - onset: Today (tonight) Timing - details: Abrupt onset Pain level now: 5 Improved by: Rest Worsened by: Moving, Palpating Associated symptoms: Swelling. No: Weakness, Numbness, Tingling, Discolored Contributing factors: No: Anticoagulated, Prior ortho surgery Similar symptoms before: Has not had sx before Recently seen: Not recently seen - Additonal information Additional information: fell while playing basketball this evening; patient fell backwards and braced his fall on outstretched RUE, causing sudden onset right wrist and hand pain (medial aspects). his elbow then flexed and his right elbow thus struck the ground as well, causing right elbow pain. pain is worse with movement (wrist, hand), particularly with supination Review of Systems Musculoskeletal: reports: Extremity pain, Joint pain. denies: Neck pain, Back pain Neurologic: denies: Focal weakness, Numbness PD PAST MEDICAL HISTORY - Past Medical History Cardiovascular: Hypertension Respiratory: Asthma Neuro: None Endocrine/Autoimmune: None GI: None : None HEENT: None Psych: None Musculoskeletal: None Derm: None - Past Surgical History Past Surgical History: Yes Ortho: Other - Present Medications Home Medications: Ambulatory Orders Medication Instructions Recorded Confirmed amLODIPine [Norvasc] 5 mg PO DAILY 12/10/16 03/18/17 Promethazine HCl 12 mg PO Q6HR PRN #100 syrup 03/18/17 Albuterol Sulfate [Proventil Hfa 1 - 2 puffs IH Q4H PRN #1 07/04/17 Inhaler] hfa.aer.ad guaiFENesin/CODEINE [Robitussin AC] 5 - 10 ml PO Q6H PRN #120 ml 07/04/17 predniSONE [Deltasone] 60 mg PO DAILY 5 Days tablet 07/04/17 Clotrimazole [Clotrimazole AF] 1 film TP BID #1 cream..g. 06/18/18 Hydrocodone/Acetaminophen 1 - 2 each PO Q6H PRN #10 tablet 01/10/19 [Hydrocodon-Acetaminophen 5-325] Acetaminophen [Tylenol] 650 mg PO Q6H PRN #30 tablet 03/10/19 Albuterol Sulfate [Proair Hfa 1 - 2 puffs INH Q4H PRN #1 inhaler 03/10/19 Inhaler] Amox/Clav 875/125 [Augmentin] 1 each PO Q12H #20 tablet 03/10/19 Ibuprofen [Motrin] 800 mg PO Q8H PRN #30 tablet 03/10/19 guaiFENesin/CODEINE [Robitussin AC] 5 - 10 ml PO Q6H PRN #120 ml 03/10/19 Amox/Clav 875/125 [Augmentin] 1 each PO Q12H #20 tablet 03/21/19 Hydrocodone/Acetaminophen 1 - 2 each PO Q6H PRN #14 tablet 03/21/19 [Hydrocodon-Acetaminophen 5-325] - Allergies Allergies/Adverse Reactions: Allergies Allergy/AdvReac Type Severity Reaction Status Date / Time No Known Drug Intolerances Allergy Unknown Verified 03/22/19 21:22 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 also tender to palpation right elbow over proximal ulna (dorsal surface) and olecranon), Swelling. No: Limited ROM (FROM right fingers, hand, wrist, elbow, but increased pain with full supination ) PEPITO UE/Hands Visual: 1 - tenderness (area of maximal tenderness) Results - Vitals Vitals: Vital Signs - 24 hr 11/21/19 21:52 Temperature 98.1 C H Heart Rate 104 H Respiratory 18 Rate Blood Pressure 166/108 H O2 Saturation 100 Oxygen O2 Source Room air - Rads (name of study) xrays right hand Radiology: Prelim report reviewed, See rad report xrays right wrist Radiology: Prelim report reviewed, See rad report xrays right elbow Radiology: Prelim report reviewed, See rad report PD MEDICAL DECISION MAKING - ED course Complexity details: reviewed results, re-evaluated patient, considered di fferential, d/w patient Departure - Departure Disposition: 01 Home, Self Care Clinical Impression: Triquetral chip fracture Condition: Good Instructions: ED Fx Wrist General, ED Splint Care Velcro Follow-Up: Demian Crooks MD [Provider Admit Priv/Credential] - Within 1 week Discharge Date/Time: 11/21/19 23:29
--- NOTE | 2019-11-22 09:11 | XRAY Report ---
PROCEDURE: Elbow 3 View RT INDICATIONS: fall, tenderness TECHNIQUE: 3 views of the elbow were acquired. COMPARISON: None FINDINGS: Bones: No fractures or dislocations. No suspicious bony lesions. Soft tissues: No elbow joint effusion. No suspicious soft tissue calcifications. IMPRESSION: No fracture. No osseous lesion. If there is continued clinical concern for pathology, then repeat memo in film radiographs (7-10 days) or advanced imaging (CT, MR, bone scan) should be considered for furt her evaluation. Reviewed by: Reta Marshall MD, PhD on 11/22/2019 9:10 AM PDT Approved by: Reta Marshall MD, PhD on 11/22/2019 9:10 AM PDT Station ID: [id number]
--- NOTE | 2019-11-22 09:17 | XRAY Report ---
PROCEDURE: Hand 3 View RT INDICATIONS: fall, tenderness TECHNIQUE: 3 views of the hand(s) acquired. COMPARISON: None FINDINGS: Bones: Cortical avulsion fracture of the dorsal margin of the triquetrum noted indeterminate age. No suspicious bony lesions. Soft tissues: No suspicious soft tissue calcifications. IMPRESSION: Triquetral fracture of indeterminate age. Reviewed by: Reta Marshall MD, PhD on 11/22/2019 9:16 AM PDT Approved by: Reta Marshall MD, PhD on 11/22/2019 9:16 AM PDT Station ID: [id number]
--- NOTE | 2019-11-22 09:18 | XRAY Report ---
PROCEDURE: Wrist 3 View RT INDICATIONS: fall, tenderness TECHNIQUE: 3 views of the wrist were acquired. COMPARISON: None FINDINGS: Bones: Mildly displaced cortical avulsion fracture of the triquetral bone. Soft tissues: No suspicious soft tissue calcifications. IMPRESSION: Triquetral fracture. Reviewed by: Reta Marshall MD, PhD on 11/22/2019 9:17 AM PDT Approved by: Reta Marshall MD, PhD on 11/22/2019 9:17 AM PDT Station ID: [id number]
== END 2019-11-21 23:29 | disposition home or self-care (01) ==
LOC: ED 21:42
DX: S62.111A Displaced fracture of triquetrum [cuneiform] bone, right wrist, initial encounter for closed fracture (principal); M25.521 Pain in right elbow; W18.30XA Fall on same level, unspecified, initial encounter; Y93.67 Activity, basketball; I10 Essential (primary) hypertension
CPT/HCPCS: 29125; 99283